=== PATIENT | female | born 1955 | race Asian ===

== ENCOUNTER 2019-07-13 10:06 | Day surgery (SDC) | payer OTHER | END 2019-07-13 12:59 | disposition home or self-care (01) | LOC: OR 10:06 | PROVIDERS: Pain Medicine Interventional Pain Medicine | DX: Z53.8 Procedure and treatment not carried out for other reasons (principal) | CPT/HCPCS: 80053; 93005; 94664 ==

== ENCOUNTER 2019-08-03 10:18 | Day surgery (SDC) | payer OTHER | END 2019-08-03 12:50 | disposition home or self-care (01) | LOC: OR 10:18 | PROC: 3E0T3BZ Introduction of Anesthetic Agent into Peripheral Nerves and Plexi, Percutaneous Approach (ICD-10-PCS; principal; 2019-08-03) | PROC: BQ18YZZ Fluoroscopy of Left Knee using Other Contrast (ICD-10-PCS; 2019-08-03) | DX: M25.562 Pain in left knee (principal); M17.12 Unilateral primary osteoarthritis, left knee | CPT/HCPCS: J2001 ==